=== PATIENT | male | born 1980 | race Hispanic/Latino ===

== ENCOUNTER → 2024-10-29 | Outpatient (CLI) | payer OTHER ==
--- NOTE | 2024-10-29 13:12 | HMCIMG ---
MR SPINAL CANAL, LUMBAR WO CON HISTORY: Radiculopathy COMPARISON: None TECHNIQUE: MRI of the lumbar spine was performed utilizing multiple pulse sequences in axial , coronal and sagittal plane. Patient was not given contrast through intravenous route. FINDINGS: Endplate degenerative changes with disc space narrowing are seen at the L5-S1 level. No loss of vertebral height is seen. There is straightening of normal lumbar curvature which may be related to muscle spasm or positioning. Degenerative disc signals are present at L2-3, L3-4, L4-5 and L5-S1 levels. Visualized distal conus is unremarkable. At the L3-4 level, there is spondylotic disc causing anterior thecal sac compression with bilateral lateral recess stenosis and bilateral neural foraminal stenosis. The thecal sac measures approximately 7.1 mm in its anterior posterior dimension. At the L4-5 level, there is spondylotic disc causing anterior thecal sac compression with bilateral lateral recess stenosis and bilateral neural foraminal stenosis. The thecal sac measures approximately 8.2 mm in its anterior posterior dimension. At the L5-S1 level, there is spondylotic disc causing anterior thecal sac compression with bilateral lateral recess stenosis and bilateral neural foraminal stenosis. The thecal sac measures approximately 7.4 mm in its anterior posterior dimension. IMPRESSION: 1. There are degenerative changes of lumbar spine spondylosis most prominent at L3-4 and L4-5 and L5-S1 levels. This is worse at L5-S1 level.
== END | disposition home or self-care (01) ==
LOC: RAH 08:51
PROVIDERS: ATTEND Family Medicine
DX: M48.07 Spinal stenosis, lumbosacral region (principal); M51.17 Intervertebral disc disorders with radiculopathy, lumbosacral region
CPT/HCPCS: 72148